=== PATIENT | female | born 1995 | race Caucasian/White ===

== ENCOUNTER 2017-09-03 17:21 | Emergency (ER) | payer SELFPAY ==
[~2017-09-03] VITALS: Ht 149.9 cm; Wt 49.9 kg
--- NOTE | 2017-09-03 18:13 | PHYS DOC ---
General Chief Complaint: ACCIDENTAL INGESTION Stated Complaint: ACCIDENTAL INGESTION Time Seen by MD: 18:09 Source: patient, family Exam Limitations: no limitations Problems: History of Present Illness Initial Comments Patient is a 22-year-old female brought to the ED by family with concerns that she took too much ibuprofen today. Family reports that between 10 and 1 today she took 10 200 mg ibuprofen geltabs. She says she took the medications to try to treat a headache. She states that she had some mild nausea yesterday and awoke today with head and body aches. She's had several episodes of nonbloody emesis as well as a few nonbloody loose stools. She's had intermittent abdominal cramping without focal abdominal pain complaints. She's had no recent travel or bad food exposure and after discussion does admit that she feels like She has a stomach virus. Denies any urinary symptoms. It is also reported that the patient has been in a "stressful environment" for the past week but she has now living in a very safe environment with her family. No elaboration is made regarding the stressful conditions she has been under the patient does express that she has no suicidal or homicidal ideation she has no prior attempts and does not participate and self-mutilation. She denies anorexia or body dysmorphic disorder. Her family would like to know why she's had a year and a half of decreased appetite however they have not seen any medical transcriptionist for this and the patient does not have a primary care physician. Patient is awake alert and oriented and exhibits UCAR capacity no evidence of suicidal ideation is noted. I do take her at her word that she is ill with a stomach virus and simply took the medications deepa fully trying to get rid of headache and body aches. ED vital signs are stable Allergies: Coded Allergies: amoxicillin (Verified Allergy, Intermediate, Hives, 09/03/17) pineapple (Verified Allergy, Intermediate, Rash, 09/03/17) Past Medical History Medical History: asthma Surgical History: noncontributory Social History Smoker: non-smoker Alcohol: none Drugs: none Review of Systems Constitutional: see HPI, chills, diaphoresis, fever, malaise Respiratory: denies cough, denies shortness of breath, denies wheezing Cardiovascular: denies chest pain, denies palpitations, denies syncope Gastrointestinal: see HPI Genitourinary: denies dysuria, denies frequency, denies hematuria Musculoskeletal: denies back pain, denies joint pain, denies neck pain Psychiatric/Neurological: headache, denies numbness, denies paresthesia, denies weakness Physical Exam General Appearance: WD/WN, no apparent distress Eyes: bilateral eye normal inspection, bilateral eye PERRL, bilateral eye EOMI Ear, Nose, Throat: hearing grossly normal, normal ENT inspection, normal pharynx Neck: non-tender, supple Respiratory: normal breath sounds, no respiratory distress Cardiovascular: normal peripheral pulses, regular rate, rhythm Gastrointestinal: normal bowel sounds, non tender, soft Back: no CVA tenderness, no vertebral tenderness Extremities: non-tender, normal inspection 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 They advised no treatment or observation is necessary that the patient is fine advised to give her a by mouth Protonix and discharge her to eat. I discussed these issues at length with the patient and her family. I discussed the need for primary care doctor follow-up. They continue with the excuse that the patient has no benefits and it is too expensive. I gave them resources regarding [facility] as well as the health department and advised them to follow-up Wednesday to see what benefits would be available to them through these entities. I discussed signs and symptoms to monitor as well as indications for urgent return to the department. There are extensive questions were answered to their satisfaction and they expressed agreement and understanding with the treatment plan see departure for instructions. Departure Time of Disposition: 18:11 Disposition: HOME, SELF-CARE Diagnosis: gastroenteritis, accidental overmedication Condition: GOOD Patient Instructions: Dehydration, Adult, [id number], Overdose, Accidental, Viral Gastroenteritis, [id number] Additional Instructions: Off work through Wednesday, note given. Clear liquids today and tomorrow, increase to bland diet afterwards as tolerated. Aggressive hydration with Gatorade and water. [id number] Tylenol as needed. Read labels and take medications as directed. Prescription: Zofran 4 mg ED staff will give you contact information for the [facility] as discussed. Follow-up with them on Wednesday. Return to ED with new or changing symptoms. JULEE MATHEW DO Sep 03, 2017 18:13
[2017-09-03] MEDS ORDERED: ONDA4TAB7 PO (18:15)
[2017-09-03] MEDS ORDERED: ONDANSETRON ODT 4 MG TAB.RAPDIS PO ONE (18:30)
[2017-09-03] MEDS ORDERED: PANTOPRAZOLE 40 MG TABLET. PO ONE (18:30)
[2017-09-03 18:31] VITALS: BP 128/72
== END 2017-09-03 18:33 | disposition home or self-care (01) ==
LOC: ER 17:21
DX: K52.9 Noninfective gastroenteritis and colitis, unspecified (principal); T50.905A Adverse effect of unspecified drugs, medicaments and biological substances, initial encounter; J45.909 Unspecified asthma, uncomplicated; Z88.1 Allergy status to other antibiotic agents; Z91.018 Allergy to other foods; Y92.89 Other specified places as the place of occurrence of the external cause
CPT/HCPCS: 99283; Q0162